=== PATIENT | male | born 1960 | race Caucasian/White ===

== ENCOUNTER 2022-09-25 12:21 | Day surgery (SDC) | payer BC ==
[~2022-09-25 12:21] MED LIST: Lactated Ringers 1,000 ML IV SCH
[2022-09-25] MEDS ORDERED: fentaNYL 100 MCG/2 ML SDV ONE (12:44)
[2022-09-25] MEDS ORDERED: Propofol 200 MG/20 ML SDV ONE (12:44)
== END 2022-09-25 15:05 | disposition home or self-care (01) ==
LOC: VM.SDS 12:21
PROVIDERS: ATTEND Family Medicine
DX: Z12.11 Encounter for screening for malignant neoplasm of colon (principal); D12.3 Benign neoplasm of transverse colon; K57.30 Diverticulosis of large intestine without perforation or abscess without bleeding; K64.9 Unspecified hemorrhoids; N48.6 Induration penis plastica; Z80.0 Family history of malignant neoplasm of digestive organs; K21.9 Gastro-esophageal reflux disease without esophagitis; K58.9 Irritable bowel syndrome, unspecified
CPT/HCPCS: 00811; J2704; J3010; J7120